=== PATIENT | female | born 1930 ===

== ENCOUNTER → 2021-10-25 | Outpatient (CLI) | payer MEDICARE | END | disposition home or self-care (01) | LOC: LAB SHORT 10:48 → LAB 10:48 → LAB SHORT 10-26 10:48 | DX: Z48.817 Encounter for surgical aftercare following surgery on the skin and subcutaneous tissue (principal); L08.9 Local infection of the skin and subcutaneous tissue, unspecified; L02.811 Cutaneous abscess of head [any part, except face]; Z85.828 Personal history of other malignant neoplasm of skin | CPT/HCPCS: 87070; 87077; 87147; 87186; 87205 ==